=== PATIENT | female | born 1985 | race Caucasian/White ===

== ENCOUNTER 2023-10-02 13:16 | Inpatient (IN) | payer BC, SELFPAY ==
[2023-10-02] VITALS (8 sets, daily range): BP systolic 71–139; BP diastolic 45–89; PULSE 97–127; RESP 19–20; TEMP 36.6–37.7; O2SAT 87–98; BMI 36.1; BMI 38.8
--- NOTE | ~2023-10-02 | XR_ITS ---
EXAMINATION: XR CHEST CLINICAL INFORMATION: Cough. COMPARISON: None available. TECHNIQUE: 2 views of the chest were obtained. FINDINGS: The trachea is in normal anatomic position. The heart is normal in size. There is an opacity at the right lung base concerning for pneumonia. A more subtle, left lower lobe opacity is not excluded. There is no pleural effusion. No pneumothorax. No acute osseous abnormality. XR/XR chest 2V IMPRESSION: Right lower lobe airspace disease concerning for pneumonia. Left lower lobe disease cannot be completely excluded.
--- NOTE | ~2023-10-02 | CT_ITS ---
EXAMINATION: CT CHEST, ABDOMEN AND PELVIS WITH CONTRAST CLINICAL INFORMATION: Severe epigastric pain. Hypotension. Cough. COMPARISON: None available. TECHNIQUE: Multidetector volumetric imaging was performed of the chest, abdomen and pelvis following administration of 85 mL Omnipaque 350 intravenous contrast. Oral contrast was administered. Sagittal and coronal reformatted images were obtained on the technologist's workstation. This CT examination was performed using dose optimization techniques as appropriate, variously including the following: *Automated exposure control *Adjustment of mA and/or kV according to patient size (this includes techniques or standardized protocols for targeted exams where dose is matched to indication/reason for exam; i.e. extremities or head) *Use of iterative reconstruction technique DLP: 774 mGy-cm FINDINGS: CHEST: LUNGS: Extensive airspace disease and masslike consolidation within the medial right lower lobe. There is patchy airspace disease in the left lower lobe. No suspicious pulmonary nodule. Central airways are patent. PLEURA: Trace right pleural effusion. MEDIASTINUM: Imaged thyroid gland is unremarkable. No bulky axillary, mediastinal or hilar lymphadenopathy. Great vessels are of normal caliber. Heart size is normal. No pericardial effusion. CORONARY ARTERY CALCIFICATION: No coronary artery calcification appreciated. CHEST WALL: No acute abnormality. ABDOMEN AND PELVIS: LIVER AND BILIARY TREE: Unremarkable. GALLBLADDER: Unremarkable. PANCREAS: Unremarkable. SPLEEN: Unremarkable. ADRENAL GLANDS: Unremarkable. KIDNEYS AND URETERS: Unremarkable. GASTROINTESTINAL TRACT: Small and large bowel loops are of normal caliber. No small bowel obstruction. Appendix is within normal limits. VASCULAR: Normal caliber abdominal aorta. LYMPH NODES: No bulky lymphadenopathy. FREE FLUID: Trace free fluid. BLADDER: Unremarkable. PELVIC VISCERA: Small anterior fibroid. OSSEOUS STRUCTURES: No destructive bone lesions. CT/CT abdomen pelvis w IV con IMPRESSION: Extensive airspace disease and masslike consolidation in the medial right lower lobe with patchy airspace disease in the left lower lobe. Trace right pleural effusion. This likely represents pneumonia. Follow-up until resolution is advised.
--- NOTE | 2023-10-02 13:38 | ED.SOB ---
HPI - SOB/Dyspnea General Chief Complaint: Upper Respiratory Symptoms Stated Complaint: Diff breathing/Fever/Cough Time Seen by Provider: 10/02/23 13:52 Source: patient and family Mode of arrival: ambulatory History of Present Illness HPI Narrative: 37-year-old female without significant past medical history who presents with severe worsening right upper quadrant pain that began this morning as worsened throughout the day, was involved in a car ride from [place] returning from a wedding, has no prescribed medications, has been taking Motrin and aspirin recently and has a history of GERD, no history of stomach ulcers denies any hematemesis/melena or hematochezia has been nauseous but denies any vomiting and reports alcohol consumption on Monday, 4-5 beers while at wedding [employer] and pain increases with deep inspiration. Related Data Allergies Allergy/AdvReac Type Severity Reaction Status Date / Time No Known Allergies Allergy Verified 10/02/23 13:41 Review of Systems Review of Systems: Pertinent positives and negatives as stated in HPI PMFSH Past Medical History Source: nursing notes reviewed Social History Social History Alcohol intake: current Smoked in Last 30 Days: No Use of substances other than those prescribed or required for medical reasons: No Advance Directives: No Advance Directives Information Provided: Yes Physical Exam Vital Signs: Vital Signs: Last Vital Signs Temp 99.8 F 10/02/23 15:19 Pulse 113 H 10/02/23 15:19 Resp 20 10/02/23 15:19 BP 107/59 L 10/02/23 15:19 Pulse Ox 95 10/02/23 15:28 O2 Del Method Nasal Cannula 10/02/23 15:28 O2 Flow Rate 3.5 10/02/23 15:28 BMI result Body Mass Index 36.1 VITAL SIGNS: Reviewed. GENERAL: Well developed, well nourished, in moderate distress. HEAD: Normocephalic/atraumatic EYES: PERRLA, EOMI EARS: Ext canals without abnormality NOSE: Nares patent bilateral OROPHARYNX: no oral lesions noted, posterior pharynx clear NECK: Supple, no adenopathy LUNGS: Normal breath sounds. No adventitious sounds or accessory muscle use. SpO2<98> CARDIOVASCULAR: Regular rate and rhythm without noted murmurs ABDOMEN: Soft, significantly tender to palpation in the right upper quadrant/epigastrium with rebound, not diffusely tender, non-distended with hypoactive bowel sounds. No rigidity. MUSCULOSKELETAL: No tenderness, deformities, or effusions noted on gross inspection. EXTREMITIES: No cyanosis, clubbing or edema. SKIN: Inspection of the skin reveals no rashes, +pallor NEUROLOGIC: Alert and oriented x 4. Strength and sensation to light touch were grossly intact x 4. Course Course Course Narrative: This is a Rapid Medical Examination (RME) performed by Garett Pierre PA-C in triage. Full HPI, ROS, assessment and treatment plan per primary provider in the Main ED. 37 yo female with no significant medical history, nonsmoker who presents to the ER for evaluation of feeling unwell for the last week, URI symptoms with cough, fever, difficulty breathing and chest pain. She reports 8/10 chest wall pain with deep inspiration. and daughter are also sick with similar symptoms. Pale and looks unwell in triage. Lungs CTAB, pain w/ inspiration. HR 110-120s. hypotensive in triage, SBP 70-90s, nauseated and feels like she is going to pass out Plan: to be brought to treatment room now. EKG, CXR, labs, viral swabs Medications Administered Discontinued Medications Generic Name Dose Route Start Last Admin Trade Name Freq PRN Reason Stop Dose Admin Sodium Chloride 1,000 mls @ 999 mls/hr 10/02/23 14:00 10/02/23 15:15 Ns IVCONT 10/02/23 15:00 Infused .Q1H1M DANIEL Infusion Piperacillin Sod/Tazobactam 50 mls @ 100 mls/hr 10/02/23 14:32 10/02/23 15:17 Sod 3.375 gm/ Sodium Chloride IV 10/02/23 15:01 100 mls/hr ONCE ONE Administration Sodium Chloride 2,517.45 mls @ 2,517.45 mls/hr 10/02/23 14:32 10/02/23 15:15 Ns 30 ml/kg infuse over 1 hr (2517.45 ml) 10/02/23 15:31 2,517.45 mls/hr IV Administration .Q1H STA Magnesium Sulfate 2 gm in 50 mls @ 150 mls/hr 10/02/23 14:33 10/02/23 15:37 Magnesium Sulfate/H2o IV 10/02/23 14:52 Infused ONCE ONE Infusion Iohexol 100 ml 10/02/23 14:20 10/02/23 14:20 Iohexol 350 Mg/Ml 100 Ml Infus..Btl IV 10/02/23 14:21 85 ml ONCE ONE Administration Medical Decision Making Medical Decision Making [facility] Narrative: 1400: 37-year-old female with history and clinical presentation, DDX: Given tachycardia and hypotension concern for bowel perforation possibly secondary to gastric ulcer, possible cholangitis but felt to be less likely, possible pancreatitis, pneumonia, though additionally unlikely, given the location of the pain low clinical suspicion for ruptured ectopic or ovarian cyst. Due to acute onset low clinical suspicion for PE. INTERVENTION: ED sepsis fluids, antibiotics 1533: Informed by nursing that patient is hypoxic down to 88 89%, placed on 3 L nasal cannula with good response. Antibiotics and sepsis fluids are infusing. I reviewed all investigations and hematologic indices significant for leukocytosis with bandemia and no anemia or thrombocytopenia. Chemistry indices negative for PASHA or electrolyte derangements other than low Mag which was repleted with 2 g of magnesium sulfate. Isolated elevation of bilirubin likely secondary to patient's sepsis. Viral testing negative for influenza/RSV/COVID-19. Chest x-ray demonstrates right lower lobe pneumonia and possible left lower lobe. CT scan demonstrates masslike consolidation in the medial right lower lobe with patchy airspace disease in the left lower lobe. CT scan of abdomen negative. Patient responded well to IV fluid resuscitation. 1553: I discussed this case with inpatient hospitalist who accepts admission. Differential Diagnosis Differential Diagnoses: The differential diagnosis associated with the presentation includes Please see the discussion above Admission/Observation Consideration of admission/observation: Escalation of care including admission/observation considered Please see the discussion above Consult Healthcare Provider Management of the patient was discussed with: Hospitalist Please see the discussion above Lab Data [facility] Lab Attestation statement: I reviewed the patient's lab results. Please see the discussion above 10/02/23 14:08 10/02/23 14:08 Labs: Lab Results 10/02/23 10/02/23 Range/Units 14:08 15:05 WBC 19.1 H (4.8-10.8) X10*3/uL RBC 3.92 L (4.20-5.50) X10*6/uL Hgb 12.3 (12.0-16.0) g/dl Hct 35.0 L (37.0-47.0) % MCV 89.3 (80.0-98.0) fL MCH 31.4 (27.0-33.0) pg MCHC 35.1 H (31.0-35.0) g/dl RDW 12.0 (11.0-16.0) % Plt Count 272 (160-400) X10*3/uL MPV 8.9 L (9.4-12.3) fL Immature Gran % (Auto) Cancelled Neut % (Auto) Cancelled Lymph % (Auto) Cancelled [place]assen % (Auto) Cancelled Eos % (Auto) Cancelled Baso % (Auto) Cancelled Lymph # (Auto) Cancelled [place]assen # (Auto) Cancelled Eos # (Auto) Cancelled Baso # (Auto) Cancelled Abs Immat Gran (auto) Cancelled Absolute Neuts (auto) Cancelled Absolute Nucleated RBC 0.000 (0.0-0.012) X10*3/uL Nucleated RBC % (auto) 0.0 (0.0-0.2) /100WBC Neutrophils % (Manual) 53 (45-73) % Band Neutrophils % 39 H (3-5) % Lymphocytes % (Manual) 2 L (20-40) % Monocytes % (Manual) 6 (2-11) % Abs Neuts (Manual) 17.6 H (2.0-8.3) X10*3/uL Lymphocytes # (Manual) 0.4 L (1.2-4.9) X10*3/uL Monocytes # (Manual) 1.1 (0.1-1.2) X10*3/uL Toxic Vacuolation PRESENT Platelet Estimate NORMAL (NORMAL) Plt Morphology Comment NORMAL RBC Morphology NORMAL Sodium 136 (135-145) mmol/L Potassium 4.1 (3.3-5.1) mmol/L Chloride 105 (96-108) mmol/L Carbon Dioxide 19 L (22-29) mmol/L Anion Gap 16 (12-20) BUN 11 (9-16) mg/dL Creatinine 0.86 (0.5-1.4) mg/dL Estim Creat Clear Calc 84.3 Estimated GFR > 60 Random Glucose 110 (60-115) mg/dL Lactic Acid 1.8 (0.5-2.0) mmol/L Calcium 9.4 (8.4-10.2) mg/dL Magnesium 1.2 L* (1.6-2.6) mg/dL Total Bilirubin 1.2 H (0.0-1.0) mg/dL Direct Bilirubin 0.4 (0.0-0.5) mg/dL AST 13 (5-31) U/L ALT 10 (0-31) U/L Alkaline Phosphatase 64 (39-117) U/L Troponin I High Sens < 2.7 (<3.5-17.0) ng/L Total Protein 7.3 (6.5-8.0) g/dL Albumin 4.2 (3.5-5.0) g/dL Lipase 5 L (8-78) U/L Influenza Type A (PCR) NEGATIVE (Negative) Influenza Type B (PCR) NEGATIVE (Negative) RSV RNA Qual (PCR) NEGATIVE (Negative) SARS-CoV-2 RNA (RT-PCR) NEGATIVE (Negative) Blood Type O Positive Antibody Screen NEGATIVE Independent Interpretation I performed an independent interpretation of an: EKG Interpretation: Sinus tachycardia, HR-109, no STEMI, ST depressions noted throughout the lateral leads, VT/QRS/QTC is within normal limits. Radiology Impression Discussion of test interpretation with radiology: I have reviewed the radiologist's reading. Radiologist Impression: Please see the discussion above Critical Care Time Critical Care Time Critical Care Time: Yes Total Critical Care Time: 60 Attestation: I personally attest to this time spent taking care of the patient. Discharge Plan Discharge Clinical Impression: Severe sepsis, Pneumonia, Hypoxia, Hypomagnesemia Patient Disposition: Admitted As Inpatient Print Language: French
--- NOTE | 2023-10-02 13:41 | ECG_ITS ---
Test Reason : SOB Blood Pressure : / mmHG Vent. Rate : 109 BPM Atrial Rate : 109 BPM P-R Int : 142 ms QRS Dur : 092 ms QT Int : 344 ms P-R-T Axes : 056 026 113 degrees QTc Int : 463 ms Sinus tachycardia Low voltage QRS Cannot rule out Anterior infarct , age undetermined Abnormal ECG No previous ECGs available Referred By: Ifrah Pierre Electronically Signed By:LAMONT MORALES MD
[2023-10-02 14:13] LABS: Hemoglobin 12.3 g/dl (12.0-16.0); Mean Corpuscular HGB Conc 35.1 g/dl (31.0-35.0); Mean Corpuscular Hemoglobin 31.4 pg (27.0-33.0); Mean Corpuscular Volume 89.3 fL (80.0-98.0); Mean Platelet Volume 8.9 fL (9.4-12.3); Platelet Count 272 X10*3/uL (160-400); Red Blood Count 3.92 X10*6/uL (4.20-5.50); White Blood Count 19.1 X10*3/uL (4.8-10.8)
[2023-10-02] MEDS: 0.9 % Sodium Chloride 1,000 ML 999 ML IVCONT (14:13)
[2023-10-02] MEDS: iohexoL 350 MG/ML 100 ML INFUS..BTL IV (14:20)
[2023-10-02 14:23] LABS: Lactic Acid 1.8 mmol/L (0.5-2.0)
[2023-10-02 14:29] LABS: Alanine Aminotransferase 10 U/L (0-31); Albumin Level 4.2 g/dL (3.5-5.0); Alkaline Phosphatase 64 U/L (39-117); Anion Gap 16 (12-20); Aspartate Amino Transferase 13 U/L (5-31); Bilirubin Direct 0.4 mg/dL (0.0-0.5); Bilirubin Total 1.2 mg/dL (0.0-1.0); Blood Urea Nitrogen 11 mg/dL (9-16); Calcium 9.4 mg/dL (8.4-10.2); Carbon Dioxide 19 mmol/L (22-29); Chloride 105 mmol/L (96-108); Creatinine Clr Calc Pharmacy 84.3; Estimated Glomerular Filt Rate > 60; Glucose Random 110 mg/dL (60-115); Potassium 4.1 mmol/L (3.3-5.1); Sodium 136 mmol/L (135-145); Total Protein 7.3 g/dL (6.5-8.0)
[2023-10-02 14:33] LABS: Magnesium 1.2 mg/dL (1.6-2.6)
[2023-10-02 14:41] LABS: Troponin-I High Sensitivity < 2.7 ng/L (<3.5-17.0)
[2023-10-02 14:50] LABS: Neutrophils Percent Manual 53 % (45-73)
[2023-10-02 14:53] LABS: Band Neutrophils Percent 39 % (3-5); Lymphocytes Absolute Manual 0.4 X10*3/uL (1.2-4.9); Lymphocytes Percent Manual 2 % (20-40); Monocytes Absolute Manual 1.1 X10*3/uL (0.1-1.2); Monocytes Percent Manual 6 % (2-11); Neutrophils Absolute Manual 17.6 X10*3/uL (2.0-8.3); RBC Morphology NORMAL
[2023-10-02 14:54] LABS: Platelet Estimate NORMAL (NORMAL); Platelet Morphology Comment NORMAL; Toxic Vacuolation PRESENT
[2023-10-02 15:05] LABS: Lipase 5 U/L (8-78)
[2023-10-02] MEDS: 0.9 % Sodium Chloride 2,517.45 ML 2517.45 ML IV (15:15)
[2023-10-02] MEDS: Magnesium Sulfate/H2O 2 GM/50 ML PIGGYBACK IV (15:15)
[2023-10-02] MEDS: Piperacillin Sodium/Tazobactam 3.375 GM in 0.9 % Sodium Chloride 50 ML IV (15:17)
[2023-10-02 15:19] LABS: Influenza A PCR NEGATIVE (Negative); Influenza B PCR NEGATIVE (Negative); Resp Syncy Virus RNA Qual PCR NEGATIVE (Negative); SARS COV2 PCR INHOUSE NEGATIVE (Negative)
--- NOTE | 2023-10-02 16:58 | P.HPHOSP_ITS ---
History of Present Illness Date of Service: 10/02/23 Attending physician on admission: iLnus Murdock Chief Complaint: cough, sob 37-year-old female without any significant past medical history presented to the ED earlier today for evaluation of shortness of breath, worsening productive cough and fevers noted around 03:00 this morning. She states for about 1 week, she has been sick with upper respiratory symptoms including cough, congestion, sinus pain, headache. States her and daughter were sick with similar symptoms. However this morning, acutely worsened with fevers of 101.3, worsening productive cough and shortness of breath. She also has significant pleuritic chest pain. Was also reporting epigastric pain but no nausea or vomiting. She states she lives in [place] and drove 11.5 hours to a wedding in [place] and is now in the city visiting relatives. Denies any known history of blood clots. She reports occasional alcohol consumption. No cigarette smoking or drug use including marijuana. On arrival, patient was hypotensive to 71/40 and tachycardic to 127. She has not had fevers in the ED but reports feeling sweats and chills. She was also noted to be hypoxic to 87% on room air and briefly placed on 3 L supplemental O2. On admission, oximetry noted to be between 94-96% on room air and was removed from supplemental O2. She has a leukocytosis of 19.1 with 39% bandemia. Renal function normal, electrolyte levels normal except for magnesium of 1.2. Lactic acid 1.8. Total bilirubin 1.2. Troponin undetectable. Negative for COVID-19, RSV, flu. Chest CT shows extensive airspace disease and masslike consolidation in the medial right lower lobe with patchy airspace disease in left lower lobe and trace right pleural effusion likely representing pneumonia. CT abd/pelvis negative for acute intraabdominal abnormality. In the ED, has received 3.5 L IV NS, 2 g magnesium, 3.375 g Zosyn. PMFSH Social History Alcohol intake: current Smoked in Last 30 Days: No Use of substances other than those prescribed or required for medical reasons: No Advance Directives: No Advance Directives Information Provided: Yes Meds Allergies Allergy/AdvReac Type Severity Reaction Status Date / Time No Known Allergies Allergy Verified 10/02/23 13:41 Active Medications: Current Medications Acetaminophen (Acetaminophen 325 Mg Tablet) 650 mg PO Q6H PRN PRN Reason: Fever Acetaminophen (Acetaminophen 325 Mg Tablet) 650 mg PO Q6H PRN PRN Reason: Pain, Mild (Pain Scale 1-3) Acetaminophen (Acetaminophen 325 Mg Tablet) 650 mg PO Q6H PRN PRN Reason: Headache Calcium Carbonate (Calcium Carbonate 750 Mg Tab.Chew) 750 mg PO Q6H PRN PRN Reason: Heartburn Ampicillin Sodium/Sulbactam (Sodium 3 gm/ Sodium Chloride) 100 mls @ 200 mls/hr IV Q6H [facility] Magnesium Hydroxide (Milk Of Magnesia 30 Ml Oral.Susp) 30 ml PO DAILY PRN PRN Reason: Constipation Melatonin (Melatonin 3 Mg Tablet) 6 mg PO BEDTIME PRN PRN Reason: Insomnia Pharmacy Consult (Consult Rx Vancomycin Dosing) 1 each MISCELLANE DAILY PRN PRN Reason: Consult order Polyethylene Glycol (Polyethylene Glycol 3350 17 Gm Powd.Pack) 17 gm PO DAILY PRN PRN Reason: Constipation Sodium Chloride (0.9 % Sodium Chloride Flush 3 Ml Syringe) 3 ml IVFLUSH QSHIFT [facility] Physical Exam 2 Vital Signs and Narrative: Vital Signs: Last Vital Signs Temp 99.8 F 10/02/23 15:19 Pulse 113 H 10/02/23 15:19 Resp 20 10/02/23 15:19 BP 107/59 L 10/02/23 15:19 Pulse Ox 95 10/02/23 15:28 O2 Del Method Nasal Cannula 10/02/23 15:28 O2 Flow Rate 3.5 10/02/23 15:28 BMI result Body Mass Index 36.1 Constitutional - Awake and Alert, No apparent distress Eyes - PERRLA, EOMI Cardiovascular - S1S2, RRR, No edema Respiratory - Normal lung expansion, Normal respiratory effort, No respiratory distress, bilateral rhonchi Gastrointestinal - NT / ND; +BS; No rebound or guarding Extremities - no calf tenderness bilaterally, no swelling Skin - Warm/Dry Neurological - Alert & oriented x3 Psychological - Appropriate affect Results Labs 10/02/23 14:08 10/02/23 14:08 Labs: Laboratory Results - last 24 hr 10/02/23 10/02/23 14:08 15:05 MCV 89.3 MCH 31.4 MCHC 35.1 H RDW 12.0 Plt Count 272 MPV 8.9 L Immature Gran % (Auto) Cancelled Neut % (Auto) Cancelled Lymph % (Auto) Cancelled Bradley % (Auto) Cancelled Eos % (Auto) Cancelled Baso % (Auto) Cancelled Lymph # (Auto) Cancelled Bradley # (Auto) Cancelled Eos # (Auto) Cancelled Baso # (Auto) Cancelled Abs Immat Gran (auto) Cancelled Absolute Neuts (auto) Cancelled Absolute Nucleated RBC 0.000 Nucleated RBC % (auto) 0.0 Neutrophils % (Manual) 53 Band Neutrophils % 39 H Lymphocytes % (Manual) 2 L Monocytes % (Manual) 6 Abs Neuts (Manual) 17.6 H Lymphocytes # (Manual) 0.4 L Monocytes # (Manual) 1.1 Toxic Vacuolation PRESENT Platelet Estimate NORMAL Plt Morphology Comment NORMAL RBC Morphology NORMAL Anion Gap 16 Estim Creat Clear Calc 84.3 Estimated GFR > 60 Random Glucose 110 Lactic Acid 1.8 Calcium 9.4 Magnesium 1.2 L* Total Bilirubin 1.2 H Direct Bilirubin 0.4 AST 13 ALT 10 Alkaline Phosphatase 64 Troponin I High Sens < 2.7 Total Protein 7.3 Albumin 4.2 Lipase 5 L Influenza Type A (PCR) NEGATIVE Influenza Type B (PCR) NEGATIVE RSV RNA Qual (PCR) NEGATIVE SARS-CoV-2 RNA (RT-PCR) NEGATIVE Blood Type O Positive Antibody Screen NEGATIVE Imaging Radiologist's Impressions: Impressions Abdomen/Pelvis CT 10/02/23 14:32 IMPRESSION: Extensive airspace disease and masslike consolidation in the medial right lower lobe with patchy airspace disease in the left lower lobe. Trace right pleural effusion. This likely represents pneumonia. Follow-up until resolution is advised. Chest CT 10/02/23 14:32 IMPRESSION: Extensive airspace disease and masslike consolidation in the medial right lower lobe with patchy airspace disease in the left lower lobe. Trace right pleural effusion. This likely represents pneumonia. Follow-up until resolution is advised. Chest X-Ray 10/02/23 14:45 IMPRESSION: Right lower lobe airspace disease concerning for pneumonia. Left lower lobe disease cannot be completely excluded. Assessment and Plan (1) Severe sepsis: Status: Acute (2) Pneumonia: Status: Acute (3) Hypomagnesemia: Status: Acute Plan 37-year-old female without any significant past medical history admitted for extensive bilateral pneumonia with severe sepsis. #Acute bilateral pneumonia with severe sepsis -leukocytosis 19, tachycardic, hypotensive to 71/45 on arrival. Hypotension resolved with IV fluids. No other end-organ damage. No septic shock -CT chest with contrast shows extensive airspace disease and masslike consolidation in the medial right lower lobe with patchy airspace disease in the left lower lobe and trace right pleural effusion likely representing pneumonia -weaned from supplemental O2 prior to admission -IV vancomycin and Unasyn (initiated 10/01) -check MRSA nasal swab. Check sputum culture, strep pneumo antigen, Legionella antigen. -check RPP -symptomatic management -will also check ddimer given pt drove 11.5 hours and is tachycardic, hypotensive, with hypoxita initially -we will also check HIV given pneumonia in young otherwise healthy female -follow CBC, cultures #Hypomagnesemia -repleted, follow lytes dvt prophylaxis- scps, early ambulation full code Patient requires inpatient stay at least 2 midnights for management of acute extensive bilateral pneumonia with severe sepsis requiring IV antibiotics, close monitoring of respiratory status, and monitoring of cultures Quality Stroke Does the patient have a stroke diagnosis?: No VTE Prior VTE?: No VTE Risk Level:: Medical - moderate - high VTE Device Contraindication: Treatment Not Indicated VTE Drug Contraindication: N/A - Med Ordered
[2023-10-02] MEDS: Acetaminophen 325 MG TABLET 975 MG PO (17:04)
[2023-10-02 17:21] LABS: Appearance Urine Clear; Color Urine Yellow; Glucose Urine UA Negative (Negative); Leukocyte Esterase Urine Small (1+) (Negative); Nitrite Urine Negative (Negative); Specific Gravity - Urine 1.025 (1.005-1.025); UMIC TRIGGER UACC YES; Urine Blood Negative (Negative); Urine Ketones Negative (Negative); Urine Protein Negative (Neg-Trace)
[2023-10-02 17:24] LABS: UPreg QC Valid YES; Urine Pregnancy NEGATIVE (NEGATIVE)
[2023-10-02] MEDS: vancomycin/NS 2,000 MG/500 ML PLAST..BAG 250 MG IV (17:33)
[2023-10-02] MEDS: guaiFEN/Codeine SF 200/20/10ML 10 ML LIQUID 5 ML PO ×2 (17:33→22:27)
[2023-10-02 17:38] LABS: Bacteria Urine None Seen (None Seen); Hyaline Casts Urine 0-2 /LPF (0-2); RBC Urine 0-2 /HPF (0-2); Squamous Epithelial Cell Urine 0-2 /HPF (0-2); UACC Culture Trigger YES
--- NOTE | 2023-10-02 17:50 | PHA.PROG ---
Admission Date/Time: October 02, 2023 16:56 Indication: Respiratory Weight in k.915 kg Adjusted body weight in Kg: [place] body weight in Kg: Obesity Dosing Indication % IBW: Serum Creatinine - Last 168 Hours 10/02/23 14:08 Creatinine 0.86 Estimated CrCl and GFR - Last 168 Hours 10/02/23 14:08 Estim Creat Clear Calc 84.3 Estimated GFR > 60 Vancomycin Loading Dose: 2000mg x 1 Current Vancomycin Dosing Regimen: 500mg Q8H Vancomycin Monitoring using AUC goal of 400 - 600 range with trough as surrogate marker: 451 mg/L Date and Time for next Vancomycin Level to be drawn: 10/02 @1600 Pharmacist Comments on Vancomycin Plan: Predicted trough of 14.7 mg/L; will continue to monitor and adjust as necessary Vancomycin dosing will take advantage of [employer] as a clinical decision support tool that uses Bayesian modeling to calculate individual patient's pharmacokinetic parameters and forecast the patient's drug concentration time course with the target goal AUC 24 range of 400 - 600 mg/L/hr.
[2023-10-02 18:24] LABS: D Dimer High Sensitivity < 150 NG/ML
--- NOTE | 2023-10-02 18:24 | PHA.MEDREC ---
Pharmacy Consult ? Medication Reconciliation Pharmacy has completed the medication reconciliation. Spoke to patient, she confirms she's not on any medication.
[2023-10-02] MEDS: 0.9 % Sodium Chloride Flush 3 ML SYRINGE IVFLUSH (22:27)
[2023-10-02] MEDS: Ampicillin Sodium/Sulbactam Na 3 GM in 0.9 % Sodium Chloride 100 ML IV (22:27)
[2023-10-03 03:49] VITALS: BP 94/54; PULSE 93; RESP 20; TEMP 36.8; O2SAT 92
--- NOTE | 2023-10-03 04:18 | PM.EVENT ---
Event Note Date of Service: 10/03/23 Event Note: Blood culture collected 10/02/23 one bottle/one set gram positive cocci in chains seen on gram stain. Time Spent With Patient Time: Total time managing care of this patient today ____ minutes.
[2023-10-03] MEDS: Ampicillin Sodium/Sulbactam Na 3 GM in 0.9 % Sodium Chloride 100 ML IV ×4 (04:30→21:25)
[2023-10-03] MEDS: vancomycin HCL 500 MG in 0.9 % Sodium Chloride 100 ML 110 MG IV ×2 (04:31→11:17)
[2023-10-03] MEDS: guaiFEN/Codeine SF 200/20/10ML 10 ML LIQUID 5 ML PO ×3 (04:31→21:25)
[2023-10-03] MEDS: Acetaminophen 325 MG TABLET 650 MG PO ×3 (05:00→21:22)
[2023-10-03 06:49] LABS: Hematocrit 30.1 % (37.0-47.0); Hemoglobin 10.5 g/dl (12.0-16.0); Mean Corpuscular HGB Conc 34.9 g/dl (31.0-35.0); Mean Corpuscular Hemoglobin 31.9 pg (27.0-33.0); Mean Corpuscular Volume 91.5 fL (80.0-98.0); Mean Platelet Volume 9.2 fL (9.4-12.3); Platelet Count 247 X10*3/uL (160-400); Red Blood Count 3.29 X10*6/uL (4.20-5.50); Red Cell Distribution Width 12.4 % (11.0-16.0); White Blood Count 20.2 X10*3/uL (4.8-10.8)
--- NOTE | 2023-10-03 07:00 | CA_ITS ---
Transthoracic Echocardiogram Patient (Last, First, Middle): Machelle Santamaria A Gender: Female Date of : 1985 Age: 37 Procedure Date: 10/03/2023 Procedure Type: Transthoracic Echocardiogram Location: [facility] [place] Height: 152.4 cm Weight: 89.81 kg BSA: 1.86 m2 Heart Rate: bpm BP: 99 / 59 mmHg [employer] Support: TRISTA Reese MD: Linus Murdock MD Anesthesia Assistant: Rhett Summers MD Symptoms: bactermia Study Quality: Adequate w contrast ECG Rhythm: Sinus Conclusions: - 1. No obvious vegetation seen on this study 2. Normal LV ejection fraction at 55-60% 3. Normal cardiac valvular Doppler 4. Normal RV systolic pressure 5. No gross pericardial effusion Findings Procedure Information Contrast agent, definity, is being given per protocol without apparent complications. Left Ventricle Normal left ventricular size, thickness, and systolic function. The visually estimated ejection fraction is between 55-60%. Diastolic function is normal for age. Right Ventricle Normal right ventricular cavity size and systolic function. Atria The left atrium is normal in size. Interatrial shunt cannot be excluded. The right atrium was not well visualized. Aortic Valve The aortic valve structure and function is likely normal. There is no aortic valve stenosis. There is no aortic valve regurgitation. Mitral Valve Normal mitral valve structure and function. There is trace mitral valve regurgitation. There is no mitral valve stenosis. Pulmonic Valve The pulmonic valve was not well visualized. Tricuspid Valve Likely normal tricuspid valve structure and function. There is trace tricuspid valve regurgitation. The right ventricular systolic pressure is normal. The right ventricular systolic pressure is 22 mmHg. Normal right atrial pressure. There is no evidence of pulmonary hypertension. Great Vessels All visible segments of the aorta are normal in size. The pulmonary artery was not well visualized. Venous The inferior vena cava is normal in size and collapses greater than 50% with inspiration. Pericardium/Pleural There is no evidence of pericardial effusion. Prior Study Comparison No prior study available for comparison. Recommendations, Care & Conclusions Consider a AKILAH if clinically appropriate. Measurements 2D Linear Measurements IVSd: 0.88 0.6-0.9/0.6-1.0 cm LVIDd: 4.69 3.9-5.3/4.2-5.9 cm LVIDd Index: 2.52 2.4-3.2/2.2-3.1 cm/m2 LVIDs: 2.64 2.0-3.6 cm LVPWd: 0.91 0.7-1.1 cm LA Diam: 3.10 2.7-3.8/3.0-4.0 cm LAIDs Index: 1.67 1.5-2.3 cm/m2 LV Mass: 175.96 67-162/88-224 g LV Mass Index: 94.60 43-95/49-115 g/m2 LVOT Diam: 2.00 3.0+(-)1.3 cm 2D Systolic Function EF 4C: 58.90 >55% EF 2C: 56.20 >55% EF BiP: 57.70 >55% Mitral Valve MV Pk E: 1.05 MV PK A: 0.72 MV Decel Time: 200.00 E/A: 1.50 E'Lateral: 13.30 E'Medial: 12.10 E/E' Med: 8.70 E/E' Lat: 7.90 PHT: 59.00 MVA PHT: 3.73 Decel [place]: 5.27 Aortic Valve AoV Pk Tani: 1.77 AoV Mn Tani: 1.20 AoV VTI: 0.33 AoV Pk Grad: 13.00 Aov Mn Grad: 7.00 MARIA LUZ Cont.VTI: 2.22 LVOT LVOT Pk Tani: 1.40 LVOT Mn Tani: 0.96 LVOT VTI: 0.23 LVOT Pk Grad: 8.00 LVOT Mn Grad: 4.00 LVOT Diam: 2.00 LVOT Area: 3.14 Diastolic Function MV Pk E: 1.05 MV Pk A: 0.72 E/A: 1.50 E'Medial: 12.10 E/E' Med: 8.70 E' Laterial: 13.30 E/E' Lat: 7.90 Right Ventricle TAPSE (mm): 25.80 TVS' Tani: 16.60 Tricuspid Valve TR Pk Tani: 2.20 TR Pk Grad: 19.00 RA Press: 3.00 RVSP: 22.00 Great Vessels Aorta Sinus of Valsalva: 3.50 2.0-3.5 cm Ao Asc: 3.10 2.1-3.4 cm Pulmonary Valve PV Pk Tani: 1.01 Peak PV Grad: 4.00 Updated in Other Vendor System with Status of Final Rhett Summers MD electronically signed on 10/03/2023 12:08:22 PM with status of Final
[2023-10-03 07:06] LABS: Anion Gap 12 (12-20); Blood Urea Nitrogen 7 mg/dL (9-16); Calcium 7.9 mg/dL (8.4-10.2); Carbon Dioxide 18 mmol/L (22-29); Chloride 113 mmol/L (96-108); Creatinine Clr Calc Pharmacy 121.8; Estimated Glomerular Filt Rate > 60; Glucose Random 99 mg/dL (60-115); Magnesium 1.9 mg/dL (1.6-2.6); Potassium 3.7 mmol/L (3.3-5.1); Sodium 139 mmol/L (135-145)
[2023-10-03 07:21] VITALS: BP 99/59; PULSE 93; RESP 20; TEMP 36.9; O2SAT 92
[2023-10-03 07:33] LABS: Band Neutrophils Percent 22 % (3-5); Lymphocytes Absolute Manual 0.6 X10*3/uL (1.2-4.9); Lymphocytes Percent Manual 3 % (20-40); Monocytes Absolute Manual 1.6 X10*3/uL (0.1-1.2); Monocytes Percent Manual 8 % (2-11); Neutrophils Percent Manual 67 % (45-73); RBC Morphology NORMAL
[2023-10-03 07:34] LABS: Platelet Estimate NORMAL (NORMAL); Platelet Morphology Comment NORMAL; Toxic Vacuolation PRESENT
[2023-10-03 08:18] LABS: HIV AB/AG Nonreactive (Nonreactive); HIV Num 1 0.05 S/CO (0.00-0.99)
--- NOTE | 2023-10-03 08:30 | MHC.CM.PN ---
CM met with Patient at bedside. Patient lives in a house in [place] with her , Mother and 16 month old Daughter and the family is staying with Patient's Aunt in this area (in [place] for a family wedding). Home/self care is the goal and CM has initiated and will follow for dc planning. PCP is Dr. Jefferson Lopez in [place].
[2023-10-03] MEDS: 0.9 % Sodium Chloride Flush 3 ML SYRINGE IVFLUSH ×3 (08:41→21:28)
[2023-10-03 09:25] LABS: Adenovirus PCR Not Detected (Not Detect.); Bordetella parapertussis PCR Not Detected (Not Detect.); Bordetella pertussis PCR Not Detected (Not Detect.); Chlamydia pneumoniae PCR Not Detected (Not Detect.); Coronavirus 229E PCR Not Detected (Not Detect.); Coronavirus HKU1 PCR Not Detected (Not Detect.); Coronavirus NL63 PCR Not Detected (Not Detect.); Coronavirus OC43 PCR Not Detected (Not Detect.); Human metapneumovirus PCR Detected (Not Detect.); Influenza A PCR Not Detected (Not Detect.); Influenza B PCR Not Detected (Not Detect.); Mycoplasma pneumoniae PCR Not Detected (Not Detect.); Parainfluenza 1 PCR Not Detected (Not Detect.); Parainfluenza 2 PCR Not Detected (Not Detect.); Parainfluenza 3 PCR Detected (Not Detect.); Parainfluenza 4 PCR Not Detected (Not Detect.); RSV PCR Not Detected (Not Detect.); Rhino/Enterovirus PCR Not Detected (Not Detect.)
[2023-10-03 09:52] LABS: SARS-CoV-2 PCR Not Detected (Not Detect.)
[2023-10-03 10:11] LABS: MRSA Nasal PCR NEGATIVE (Negative); SA Nasal PCR NEGATIVE (Negative)
[2023-10-03 11:06] VITALS: BP 103/61; PULSE 95; RESP 20; TEMP 36.9; O2SAT 95
--- NOTE | 2023-10-03 11:58 | HO.PM.IMPN ---
Subjective Subjective Date of Service: 10/03/23 Interval History: feeling a bit better Physical Exam Vital Signs: Vital Signs: Last Vital Signs Temp 98.4 F 10/03/23 11:06 Pulse 95 10/03/23 11:06 Resp 20 10/03/23 11:06 BP 103/61 10/03/23 11:06 Pulse Ox 95 10/03/23 11:06 O2 Del Method Room Air 10/03/23 11:06 O2 Flow Rate 3.5 10/02/23 15:28 BMI result Body Mass Index 38.8 General: AO X 3, no acute distress Resp: Right base decreased, no accessory muscles used CVS: S1,S2,RRR GI: soft, non tender, non distended Neuro: motor grossly intact, alert Psych: appropriate affect, appropriate insight Objective Data Active Medications Acetaminophen (Acetaminophen 325 Mg Tablet) 650 mg PO Q6H PRN PRN Reason: Fever Acetaminophen (Acetaminophen 325 Mg Tablet) 650 mg PO Q6H PRN PRN Reason: Pain, Mild (Pain Scale 1-3) Acetaminophen (Acetaminophen 325 Mg Tablet) 650 mg PO Q6H PRN PRN Reason: Headache Last Admin: 10/03/23 05:00 Dose: 650 mg Documented By: MALA Calcium Carbonate (Calcium Carbonate 750 Mg Tab.Chew) 750 mg PO Q6H PRN PRN Reason: Heartburn Guaifenesin/Codeine Phosphate (Guaifen/Codeine Sf 200/20/10ml 10 Ml Liquid) 5 ml PO Q4H [facility] Last Admin: 10/03/23 08:41 Dose: 5 ml Documented By: MELBA Ampicillin Sodium/Sulbactam (Sodium 3 gm/ Sodium Chloride) 100 mls @ 200 mls/hr IV Q6H [facility] Last Infusion: 10/03/23 09:31 Dose: Infused Documented By: MELBA Vancomycin HCl 500 mg/ Sodium (Chloride) 110 mls @ 110 mls/hr IV Q8H [facility] Last Admin: 10/03/23 11:17 Dose: 110 mls/hr Documented By: MELBA Magnesium Hydroxide (Milk Of Magnesia 30 Ml Oral.Susp) 30 ml PO DAILY PRN PRN Reason: Constipation Melatonin (Melatonin 3 Mg Tablet) 6 mg PO BEDTIME PRN PRN Reason: Insomnia Pharmacy Consult (Consult Rx Vancomycin Dosing) 1 each MISCELLANE DAILY PRN PRN Reason: Consult order Polyethylene Glycol (Polyethylene Glycol 3350 17 Gm Powd.Pack) 17 gm PO DAILY PRN PRN Reason: Constipation Sodium Chloride (0.9 % Sodium Chloride Flush 3 Ml Syringe) 3 ml IVFLUSH QSHIFT [facility] Last Admin: 10/03/23 08:41 Dose: 3 ml Documented By: MELBA Labs 10/03/23 06:19 10/03/23 06:19 Labs: Laboratory Results - last 24 hr 10/02/23 10/02/23 10/02/23 14:08 15:05 17:14 MCV 89.3 MCH 31.4 MCHC 35.1 H RDW 12.0 Plt Count 272 MPV 8.9 L Immature Gran % (Auto) Cancelled Neut % (Auto) Cancelled Lymph % (Auto) Cancelled Kerr % (Auto) Cancelled Eos % (Auto) Cancelled Baso % (Auto) Cancelled Lymph # (Auto) Cancelled Kerr # (Auto) Cancelled Eos # (Auto) Cancelled Baso # (Auto) Cancelled Abs Immat Gran (auto) Cancelled Absolute Neuts (auto) Cancelled Absolute Nucleated RBC 0.000 Nucleated RBC % (auto) 0.0 Neutrophils % (Manual) 53 Band Neutrophils % 39 H Lymphocytes % (Manual) 2 L Monocytes % (Manual) 6 Abs Neuts (Manual) 17.6 H Lymphocytes # (Manual) 0.4 L Monocytes # (Manual) 1.1 Toxic Vacuolation PRESENT Platelet Estimate NORMAL Plt Morphology Comment NORMAL RBC Morphology NORMAL D-Dimer High Sensitivty Anion Gap 16 Estim Creat Clear Calc 84.3 Estimated GFR > 60 Random Glucose 110 Lactic Acid 1.8 Calcium 9.4 Magnesium 1.2 L* Total Bilirubin 1.2 H Direct Bilirubin 0.4 AST 13 ALT 10 Alkaline Phosphatase 64 Troponin I High Sens < 2.7 Total Protein 7.3 Albumin 4.2 Lipase 5 L Urine Color Yellow Urine Appearance Clear Urine pH 6.0 Ur Specific Payson 1.025 Urine Protein Negative Urine Glucose (UA) Negative Urine Ketones Negative Urine Blood Negative Urine Nitrite Negative Ur Leukocyte Esterase Small (1+) H Urine RBC 0-2 Urine WBC 11-20 H Ur Squamous Epith Cells 0-2 Urine Bacteria None Seen Hyaline Casts 0-2 Urine Test NEGATIVE Nasal Screen MRSA (PCR) Nasal S. aureus Screen Nasal MRSA/S.aureus Interp Respiratory Panel Dawson Adenovirus (Rapid PCR) B.pert (TEM-PCR) B.parapertussis DNA PCR C. pneumoniae DNA (PCR) Coronavirus OC43 (PCR) Coronavirus HKU1 (PCR) Coronavirus 229E (PCR) Coronavirus NL63 (PCR) Human Metapneumovir PCR Influenza A (RT-PCR) Influenza Type A (PCR) NEGATIVE Influenza B (RT-PCR) Influenza Type B (PCR) NEGATIVE M. pneumoniae (PCR) Parainfluenza 1 (PCR) Parainfluenza 2 (PCR) Parainfluenza 3 (PCR) Parainfluenza 4 (PCR) RSV (PCR) RSV RNA Qual (PCR) NEGATIVE Entero/Rhino (PCR) SARS-CoV-2 RNA (RT-PCR) NEGATIVE Blood Type O Positive Antibody Screen NEGATIVE 10/02/23 10/02/23 10/03/23 17:55 18:02 06:19 MCV 91.5 MCH 31.9 MCHC 34.9 RDW 12.4 Plt Count 247 MPV 9.2 L Immature Gran % (Auto) Cancelled Neut % (Auto) Cancelled Lymph % (Auto) Cancelled Kerr % (Auto) Cancelled Eos % (Auto) Cancelled Baso % (Auto) Cancelled Lymph # (Auto) Cancelled Kerr # (Auto) Cancelled Eos # (Auto) Cancelled Baso # (Auto) Cancelled Abs Immat Gran (auto) Cancelled Absolute Neuts (auto) Cancelled Absolute Nucleated RBC 0.000 Nucleated RBC % (auto) 0.0 Neutrophils % (Manual) 67 Band Neutrophils % 22 H Lymphocytes % (Manual) 3 L Monocytes % (Manual) 8 Abs Neuts (Manual) 18.0 H Lymphocytes # (Manual) 0.6 L Monocytes # (Manual) 1.6 H Toxic Vacuolation PRESENT Platelet Estimate NORMAL Plt Morphology Comment NORMAL RBC Morphology NORMAL D-Dimer High Sensitivty < 150 Anion Gap 12 Estim Creat Clear Calc 121.8 Estimated GFR > 60 Random Glucose 99 Lactic Acid Calcium 7.9 L D Magnesium 1.9 Total Bilirubin Direct Bilirubin AST ALT Alkaline Phosphatase Troponin I High Sens Total Protein Albumin Lipase Urine Color Urine Appearance Urine pH Ur Specific Payson Urine Protein Urine Glucose (UA) Urine Ketones Urine Blood Urine Nitrite Ur Leukocyte Esterase Urine RBC Urine WBC Ur Squamous Epith Cells Urine Bacteria Hyaline Casts Urine Test Nasal Screen MRSA (PCR) NEGATIVE Nasal S. aureus Screen NEGATIVE Nasal MRSA/S.aureus Interp SEE NOTE Respiratory Panel Dawson See Note Adenovirus (Rapid PCR) Not Detected B.pert (TEM-PCR) Not Detected B.parapertussis DNA PCR Not Detected C. pneumoniae DNA (PCR) Not Detected Coronavirus OC43 (PCR) Not Detected Coronavirus HKU1 (PCR) Not Detected Coronavirus 229E (PCR) Not Detected Coronavirus NL63 (PCR) Not Detected Human Metapneumovir PCR Detected A Influenza A (RT-PCR) Not Detected Influenza Type A (PCR) Influenza B (RT-PCR) Not Detected Influenza Type B (PCR) M. pneumoniae (PCR) Not Detected Parainfluenza 1 (PCR) Not Detected Parainfluenza 2 (PCR) Not Detected Parainfluenza 3 (PCR) Detected A Parainfluenza 4 (PCR) Not Detected RSV (PCR) Not Detected RSV RNA Qual (PCR) Entero/Rhino (PCR) Not Detected SARS-CoV-2 RNA (RT-PCR) Not Detected Blood Type Antibody Screen Microbiology Microbiology Results: Microbiology 10/02/23 15:16 Blood Culture - Preliminary Blood - Venous Prelim: GPC Gram Stain only 10/02/23 15:05 Blood Culture - Preliminary Blood - Venous Prelim: GPC Gram Stain only Assessment and Plan (1) Pneumonia: Status: Acute Plan 37F no significant PMH presented with cough, fever severe sepsis due to acute pneumonia complicated by GPC bacteremia post viral (human metapneumovirus, paraflu) vs aspiration continue vanc and unasyn follow up cultures, repeat cultures, echo, ID, hiv acute hypomagnesemia replaced dvt prophylaxis - low risk, early ambulation full code reason for continued hospitalization: bactremia Quality Stroke Does the patient have a stroke diagnosis?: No VTE Prior VTE?: No VTE Risk Level:: Medical - moderate - high VTE Device Contraindication: Treatment Not Indicated VTE Drug Contraindication: N/A - Med Ordered
[2023-10-03 16:00] VITALS: BP 117/59; PULSE 109; RESP 20; TEMP 37.3; O2SAT 96
[2023-10-03 16:29] LABS: Vancomycin Trough 7.9 mcg/mL (10.0-20.0)
[2023-10-03] MEDS: vancomycin HCL 1,250 MG in 0.9 % Sodium Chloride 250 ML 166.67 MG IV (18:30)
[2023-10-03 20:00] VITALS: BP 113/70; PULSE 103; RESP 18; TEMP 36.7; O2SAT 100
[2023-10-03] MEDS: Melatonin 3 MG TABLET 6 MG PO (21:23)
[2023-10-04] VITALS (7 sets, daily range): BP systolic 104–151; BP diastolic 61–80; PULSE 77–88; RESP 17–20; TEMP 36.4–37.4; O2SAT 94–99
[2023-10-04] MEDS: guaiFEN/Codeine SF 200/20/10ML 10 ML LIQUID 5 ML PO ×5 (03:53→21:05)
[2023-10-04] MEDS: Ampicillin Sodium/Sulbactam Na 3 GM in 0.9 % Sodium Chloride 100 ML IV ×4 (03:53→21:05)
[2023-10-04] MEDS: Acetaminophen 325 MG TABLET 650 MG PO ×3 (03:59→21:04)
[2023-10-04] MEDS: vancomycin HCL 1,250 MG in 0.9 % Sodium Chloride 250 ML 166.67 MG IV (06:46)
[2023-10-04 07:36] LABS: Hematocrit 29.4 % (37.0-47.0); Mean Corpuscular Hemoglobin 31.1 pg (27.0-33.0); Mean Corpuscular Volume 91.3 fL (80.0-98.0); Mean Platelet Volume 9.3 fL (9.4-12.3); Platelet Count 268 X10*3/uL (160-400); Red Blood Count 3.22 X10*6/uL (4.20-5.50); Red Cell Distribution Width 12.6 % (11.0-16.0); White Blood Count 18.9 X10*3/uL (4.8-10.8)
[2023-10-04 07:50] LABS: Anion Gap 12 (12-20); Blood Urea Nitrogen 7 mg/dL (9-16); Carbon Dioxide 20 mmol/L (22-29); Chloride 112 mmol/L (96-108); Creatinine Clr Calc Pharmacy 107.9; Estimated Glomerular Filt Rate > 60; Glucose Fasting 94 mg/dL (60-99); Potassium 3.6 mmol/L (3.3-5.1); Sodium 140 mmol/L (135-145)
[2023-10-04 08:02] LABS: Calcium 8.8 mg/dL (8.4-10.2)
[2023-10-04] MEDS: 0.9 % Sodium Chloride Flush 3 ML SYRINGE IVFLUSH ×3 (09:15→21:11)
[2023-10-04 10:29] LABS: Iron 13 mcg/dL (30-160); Percent Iron Saturation 7 % (15-50); Total Iron Binding Capacity 185 mcg/dL (228-428); Unsaturated Iron Binding 172 ug/dL
--- NOTE | 2023-10-04 13:07 | MHC.CM.PN ---
Per ROUNDS discussion, Patient is not yet medically cleared for dc(pending cultures); home is the goal and CM will continue to follow.
[2023-10-04 16:46] LABS: Vancomycin Random 8.3 mcg/mL (15-20)
--- NOTE | 2023-10-04 17:04 | P.PNIM_ITS ---
Subjective Subjective Date of Service: 10/04/23 Interval History: Seen and evaluated this morning Feels better but still weak and fatigued pending final cultures Review of Systems Review of Systems: Yes all other systems are reviewed and are negative Physical Exam 2 Vital Signs: Vital Signs: Last Vital Signs Temp 99.4 F 10/04/23 15:13 Pulse 88 10/04/23 15:13 Resp 20 10/04/23 15:13 BP 124/72 10/04/23 15:13 Pulse Ox 97 10/04/23 15:13 O2 Del Method Room Air 10/04/23 15:13 O2 Flow Rate 3.5 10/02/23 15:28 BMI result Body Mass Index 38.8 Const: Other: Constitutional : Awake, interactive, not in distress Neck : Normal inspection, Supple Cardiovascular : RRR, no JVP, no lower extremity edema Respiratory : good bilateral air entry, no crackles, wheezes or rhonchi Gastrointestinal: soft, lax, Normal bowel sounds, Non tender Skin : Warm, Dry Neurological : Alert & oriented x3, No focal deficit Objective Data Active Medications Acetaminophen (Acetaminophen 325 Mg Tablet) 650 mg PO Q6H PRN PRN Reason: Fever Last Admin: 10/04/23 15:18 Dose: 650 mg Documented By: MELBA Acetaminophen (Acetaminophen 325 Mg Tablet) 650 mg PO Q6H PRN PRN Reason: Pain, Mild (Pain Scale 1-3) Last Admin: 10/04/23 03:59 Dose: 650 mg Documented By: ANGELA Acetaminophen (Acetaminophen 325 Mg Tablet) 650 mg PO Q6H PRN PRN Reason: Headache Last Admin: 10/03/23 05:00 Dose: 650 mg Documented By: MALA Calcium Carbonate (Calcium Carbonate 750 Mg Tab.Chew) 750 mg PO Q6H PRN PRN Reason: Heartburn Guaifenesin/Codeine Phosphate (Guaifen/Codeine Sf 200/20/10ml 10 Ml Liquid) 5 ml PO Q4H [facility] Last Admin: 10/04/23 15:57 Dose: 5 ml Documented By: MELBA Ampicillin Sodium/Sulbactam (Sodium 3 gm/ Sodium Chloride) 100 mls @ 200 mls/hr IV Q6H [facility] Last Admin: 10/04/23 15:15 Dose: 200 mls/hr Documented By: MELBA Vancomycin HCl 1,250 mg/ (Sodium Chloride) 250 mls @ 166.667 mls/hr IV Q12H [facility] Last Infusion: 10/04/23 08:30 Dose: Infused Documented By: MELBA Magnesium Hydroxide (Milk Of Magnesia 30 Ml Oral.Susp) 30 ml PO DAILY PRN PRN Reason: Constipation Melatonin (Melatonin 3 Mg Tablet) 6 mg PO BEDTIME PRN PRN Reason: Insomnia Last Admin: 10/03/23 21:23 Dose: 6 mg Documented By: ANGELA Pharmacy Consult (Consult Rx Vancomycin Dosing) 1 each MISCELLANE DAILY PRN PRN Reason: Consult order Polyethylene Glycol (Polyethylene Glycol 3350 17 Gm Powd.Pack) 17 gm PO DAILY PRN PRN Reason: Constipation Sodium Chloride (0.9 % Sodium Chloride Flush 3 Ml Syringe) 3 ml IVFLUSH QSHIFT [facility] Last Admin: 10/04/23 15:19 Dose: 3 ml Documented By: MELBA Labs 10/04/23 07:06 10/04/23 07:06 Labs: Laboratory Results - last 24 hr 10/04/23 10/04/23 07:06 16:16 MCV 91.3 MCH 31.1 MCHC 34.0 RDW 12.6 Plt Count 268 MPV 9.3 L Absolute Nucleated RBC 0.000 Nucleated RBC % (auto) 0.0 Anion Gap 12 Estim Creat Clear Calc 107.9 Estimated GFR > 60 Fasting Glucose 94 Calcium 8.8 D Iron 13 L TIBC 185 L % Saturation 7 L Unsat Iron Binding 172 Random Vancomycin 8.3 L Microbiology Microbiology Results: Microbiology 10/02/23 15:16 Blood Culture - Preliminary Blood - Venous Streptococcus pneumoniae 10/02/23 15:05 Blood Culture - Preliminary Blood - Venous Streptococcus pneumoniae 10/02/23 17:55 Urine Culture - Final Urine clean catch - Urine doherty top No growth. 10/03/23 17:25 Gram Stain - Final Sputum - Expectorated Sputum Culture - Preliminary No growth to date. Assessment and Plan (1) Hypomagnesemia: Status: Acute (2) Pneumonia: Status: Acute (3) Bacteremia due to Streptococcus pneumoniae: Status: Acute Plan 37F no significant PMH presented with cough, fever severe sepsis due to acute pneumonia complicated by GPC bacteremia post viral (human metapneumovirus, paraflu) vs aspiration Blood cx growing Strep Pneumonia DC vanc and continue unasyn follow up repeat cultures Negative echo, HIV ID following acute hypomagnesemia replaced dvt prophylaxis - low risk, early ambulation full code reason for continued hospitalization: bactremia Quality Stroke Does the patient have a stroke diagnosis?: No VTE Prior VTE?: No VTE Risk Level:: Medical - moderate - high VTE Device Contraindication: Treatment Not Indicated VTE Drug Contraindication: N/A - Med Ordered
[2023-10-04] MEDS: Ferrous Sulfate 324 MG TABLET.DR PO (18:41)
--- NOTE | 2023-10-05 00:07 | P.CNID_ITS ---
History of Present Illness Data of Consult Service Date: 10/04/23 Requesting physician: Lizzie Harrington Primary Care Provider: Jefferson LYN Reason for consult: strep pneumonia bacteremia She presents with chills and profound weakness for last 2-3 days. She has been visiting from [place] and in crowded setting in car. She has strep pneumonia bacteremia. Review of Systems 2 Review of Systems: Yes all other systems are reviewed and are negative PMFSH Past Medical History Medical History No known health problems Family History Family history: reviewed and not pertinent Social History Social History Household Members: Spouse, Family and Children Household Members Other:: , daughter, mother Housing: House Do you presently have visiting nurse or other home services: No Alcohol intake: current Patient Tobacco Use Status: Never used Tobacco service: No Meds Allergies Allergy/AdvReac Type Severity Reaction Status Date / Time No Known Allergies Allergy Verified 10/02/23 13:41 Active Medications: Current Medications Acetaminophen (Acetaminophen 325 Mg Tablet) 650 mg PO Q6H PRN PRN Reason: Fever Last Admin: 10/04/23 21:04 Dose: 650 mg Acetaminophen (Acetaminophen 325 Mg Tablet) 650 mg PO Q6H PRN PRN Reason: Pain, Mild (Pain Scale 1-3) Last Admin: 10/04/23 03:59 Dose: 650 mg Acetaminophen (Acetaminophen 325 Mg Tablet) 650 mg PO Q6H PRN PRN Reason: Headache Last Admin: 10/03/23 05:00 Dose: 650 mg Calcium Carbonate (Calcium Carbonate 750 Mg Tab.Chew) 750 mg PO Q6H PRN PRN Reason: Heartburn Ferrous Sulfate (Ferrous Sulfate 324 Mg Tablet.Dr) 324 mg PO BIDWM DANIEL Last Admin: 10/04/23 18:41 Dose: 324 mg Guaifenesin/Codeine Phosphate (Guaifen/Codeine Sf 200/20/10ml 10 Ml Liquid) 5 ml PO Q4H [facility] Last Admin: 10/04/23 21:05 Dose: 5 ml Ampicillin Sodium/Sulbactam (Sodium 3 gm/ Sodium Chloride) 100 mls @ 200 mls/hr IV Q6H [facility] Last Infusion: 05/15/24 21:45 Dose: Infused Magnesium Hydroxide (Milk Of Magnesia 30 Ml Oral.Susp) 30 ml PO DAILY PRN PRN Reason: Constipation Melatonin (Melatonin 3 Mg Tablet) 6 mg PO BEDTIME PRN PRN Reason: Insomnia Last Admin: 10/03/23 21:23 Dose: 6 mg Polyethylene Glycol (Polyethylene Glycol 3350 17 Gm Powd.Pack) 17 gm PO DAILY PRN PRN Reason: Constipation Sodium Chloride (0.9 % Sodium Chloride Flush 3 Ml Syringe) 3 ml IVFLUSH QSHIFT [facility] Last Admin: 10/04/23 21:11 Dose: 3 ml Physical Exam 2 Vital Signs: Vital Signs: Last Vital Signs Temp 98.6 F 10/04/23 23:07 Pulse 77 10/04/23 23:07 Resp 18 10/04/23 23:07 BP 119/80 10/04/23 23:07 Pulse Ox 97 10/04/23 23:07 O2 Del Method Room Air 10/04/23 23:07 O2 Flow Rate 3.5 10/02/23 15:28 BMI result Body Mass Index 38.8 Const: General: cooperative HEENT: Head: Yes normal to inspection Face and sinus: Yes normal facial exam Mouth: Normal oral and palatal mucosa present Teeth and gingiva: d entition normal Eyes: General: appearance normal, both eyes and all related structures P upils: Equal, round and reactive pupils present Resp: Effort & Inspection: normal respiratory effort Cardio: Rate: regular rate Rhythm: regular rhythm GI: Palpation (GI): Soft to palpation and nontender : General: Yes no CVA tenderness Back/Spine/Pelvis: Back: no CVA tenderness Skin: General skin exam: no rashes or lesions noted Neuro: General: moves all extremities Cranial nerves: Yes Equal, round and reactive pupils present Extrem: General: Yes normal to inspection Psych: Appearance: grossly normal Results Labs 10/04/23 07:06 10/04/23 07:06 Labs: Short CBC 10/04/23 Range/Units 07:06 WBC 18.9 H (4.8-10.8) X10*3/uL Hgb 10.0 L (12.0-16.0) g/dl Hct 29.4 L (37.0-47.0) % Plt Count 268 (160-400) X10*3/uL BMP 10/04/23 07:06 Sodium 140 Potassium 3.6 Chloride 112 H Carbon Dioxide 20 L BUN 7 L Creatinine 0.70 Calcium 8.8 D Microbiology Microbiology Results: Microbiology 10/02/23 15:16 Blood - Venous Blood Culture - Preliminary Streptococcus pneumoniae 10/02/23 15:05 Blood - Venous Blood Culture - Preliminary Streptococcus pneumoniae 10/02/23 17:55 Urine clean catch - Urine doherty top Urine Culture - Final No growth. 10/03/23 17:25 Sputum - Expectorated Gram Stain - Final 10/03/23 17:25 Sputum - Expectorated Sputum Culture - Preliminary No growth to date. Assessment and Plan (1) Pneumonia: Status: Acute (2) Bacteremia due to Streptococcus pneumoniae: Status: Acute Plan Strep pneumonia probably due to crowding likely No immune deficiency seen and not on oxygen. Would give po Levaquin 750 mg daily to complete 14 days therapy. follow PCP after illness to check IgA and IgG.
[2023-10-05] MEDS: Ampicillin Sodium/Sulbactam Na 3 GM in 0.9 % Sodium Chloride 100 ML IV ×2 (02:33→08:37)
[2023-10-05] MEDS: guaiFEN/Codeine SF 200/20/10ML 10 ML LIQUID 5 ML PO ×3 (02:33→08:37)
[2023-10-05 04:00] VITALS: BP 136/77; PULSE 84; RESP 20; TEMP 37.1; O2SAT 95
[2023-10-05] MEDS: Acetaminophen 325 MG TABLET 650 MG PO (05:21)
[2023-10-05 07:11] LABS: Hemoglobin 9.9 g/dl (12.0-16.0); Mean Corpuscular HGB Conc 34.1 g/dl (31.0-35.0); Mean Corpuscular Hemoglobin 31.1 pg (27.0-33.0); Mean Corpuscular Volume 91.2 fL (80.0-98.0); Mean Platelet Volume 9.3 fL (9.4-12.3); Platelet Count 288 X10*3/uL (160-400); Red Blood Count 3.18 X10*6/uL (4.20-5.50); Red Cell Distribution Width 12.2 % (11.0-16.0); White Blood Count 13.2 X10*3/uL (4.8-10.8)
[2023-10-05 07:27] LABS: Creatinine Clr Calc Pharmacy 114.4; Estimated Glomerular Filt Rate > 60
[2023-10-05 08:00] VITALS: BP 139/74; PULSE 89; RESP 20; TEMP 36.9; O2SAT 95
[2023-10-05] MEDS: Ferrous Sulfate 324 MG TABLET.DR PO (08:37)
[2023-10-05] MEDS: 0.9 % Sodium Chloride Flush 3 ML SYRINGE IVFLUSH (08:40)
[2023-10-05] MEDS: Butalb/Acetamin/Caff 50/325/40 TABLET 2 TAB PO (09:12)
--- NOTE | 2023-10-05 12:09 | PM.DS ---
DS: Providers Provider Date of Service: 10/05/23 Date of admission: 10/02/23 16:56 Primary care physician: Jefferson Lopez Consults: 10/03/23 09:28 Consult to Infectious Diseases Routine Consulting Provider: [facility] [place] Infectious Disease Reason for consultation: bacteremia DS: Diagnosis Discharge Diagnosis (1) Pneumonia: Status: Acute (2) Bacteremia due to Streptococcus pneumoniae: Status: Acute (3) Hypomagnesemia: Status: Acute (4) Severe sepsis: Status: Acute (5) Hypoxia: Status: Acute DS: Summary Hospital Course Hospital Course: Admission note HPI 37-year-old female without any significant past medical history presented to the ED earlier today for evaluation of shortness of breath, worsening productive cough and fevers noted around 03:00 this morning. She states for about 1 week, she has been sick with upper respiratory symptoms including cough, congestion, sinus pain, headache. States her and daughter were sick with similar symptoms. However this morning, acutely worsened with fevers of 101.3, worsening productive cough and shortness of breath. She also has significant pleuritic chest pain. Was also reporting epigastric pain but no nausea or vomiting. She states she lives in [place] and drove 11.5 hours to a wedding in [place] and is now in the city visiting relatives. Denies any known history of blood clots. She reports occasional alcohol consumption. No cigarette smoking or drug use including marijuana. On arrival, patient was hypotensive to 71/40 and tachycardic to 127. She has not had fevers in the ED but reports feeling sweats and chills. She was also noted to be hypoxic to 87% on room air and briefly placed on 3 L supplemental O2. On admission, oximetry noted to be between 94-96% on room air and was removed from supplemental O2. She has a leukocytosis of 19.1 with 39% bandemia. Renal function normal, electrolyte levels normal except for magnesium of 1.2. Lactic acid 1.8. Total bilirubin 1.2. Troponin undetectable. Negative for COVID-19, RSV, flu. Chest CT shows extensive airspace disease and masslike consolidation in the medial right lower lobe with patchy airspace disease in left lower lobe and trace right pleural effusion likely representing pneumonia. CT abd/pelvis negative for acute intraabdominal abnormality. In the ED, has received 3.5 L IV NS, 2 g magnesium, 3.375 g Zosyn. Hospital course She was admitted to the hospital for treatment of severe sepsis due to acute pneumonia complicated by streptococcal pneumonae bacteremia as a result of likely post viral (human metapneumovirus, paraflu) infections. Blood cx growing Strep Pneumonia but repeated one remains negative. Treated with IV vancomycin and continue unasyn with good response as weakness and SOB resolved. WBCs trended down. Tested negative echo for vegetations, and negative HIV. Seen by ID who recommended finishing 2 weeks of oral antibiotics like Levaquin. Found to have acute hypomagnesemia which was replaced and corrected. Discharge plan Continue Levaquin for 10 more days to finish total of 2 weeks of antibitics Follow with PCP within 2 weeks for reevaluation Time Attestation Discharge Coordination Time (in mins): 37 Quality: Safe Use of Opioids Does Pt have an Active Cancer Diagnosis on the Problem List?: No Quality: Stroke Does the patient have a stroke diagnosis?: No Physical Exam Vital Signs: Vital Signs: Last Vital Signs Temp 98.4 F 10/05/23 08:00 Pulse 89 10/05/23 08:00 Resp 20 10/05/23 08:00 BP 139/74 10/05/23 08:00 Pulse Ox 95 10/05/23 08:00 O2 Del Method Room Air 10/05/23 08:00 O2 Flow Rate 3.5 10/02/23 15:28 BMI result Body Mass Index 38.8 Const: Other: Constitutional : Awake, interactive, not in distress Neck : Normal inspection, Supple Cardiovascular : RRR, no JVP, no lower extremity edema Respiratory : good bilateral air entry, no crackles, wheezes or rhonchi Gastrointestinal: soft, lax, Normal bowel sounds, Non tender Skin : Warm, Dry Neurological : Alert & oriented x3, No focal deficit DS: Data Data Completed and Pending Labs on day of discharge: Laboratory Results - last 24 hr 10/04/23 10/05/23 16:16 06:33 WBC 13.2 H RBC 3.18 L Hgb 9.9 L Hct 29.0 L MCV 91.2 MCH 31.1 MCHC 34.1 RDW 12.2 Plt Count 288 MPV 9.3 L Absolute Nucleated RBC 0.000 Nucleated RBC % (auto) 0.0 Creatinine 0.66 Estim Creat Clear Calc 114.4 Estimated GFR > 60 Random Vancomycin 8.3 L Preliminary micro results at discharge 10/03/23 17:25 Sputum Culture - Preliminary Sputum - Expectorated 10/04/23 07:06 Blood Culture - Preliminary Blood - Venous No growth after 24 hours. 10/04/23 07:06 Blood Culture - Preliminary Blood - Venous No growth after 24 hours. Imaging Chest x-ray: Radiologist's impression: ITS Impressions Abdomen/Pelvis CT 10/02/23 14:32 IMPRESSION: Extensive airspace disease and masslike consolidation in the medial right lower lobe with patchy airspace disease in the left lower lobe. Trace right pleural effusion. This likely represents pneumonia. Follow-up until resolution is advised. Chest CT 10/02/23 14:32 IMPRESSION: Extensive airspace disease and masslike consolidation in the medial right lower lobe with patchy airspace disease in the left lower lobe. Trace right pleural effusion. This likely represents pneumonia. Follow-up until resolution is advised. Chest X-Ray 10/02/23 14:45 IMPRESSION: Right lower lobe airspace disease concerning for pneumonia. Left lower lobe disease cannot be completely excluded. Discharge Plan Discharge Anticipated Discharge Date/Time: 10/05/23 12:06 Patient Disposition: Home, Self-Care Discharge Diagnosis: Streptococcal Pneumonia bacteremia Referrals: Jefferson Lopez [Other] - 1 Week Discharge Medications: New levofloxacin 750 mg tablet 750 mg PO DAILY Qty: 10 0RF Discharge Orders: Discharge Order (Routine); Ordered 10/05/23 Ordered By: Lizzie Harrington Diet: Advance to usual diet Activity on Discharge: As tolerated Stand Alone Forms: Patient Portal Discharge page Print Language: [place] Care Plan Goals: Read below Health Concerns: Read below Plan of Treatment: Read below Assessment: You were treated for pneumonia complicated by streptococcus bacteremia as a result of post viral infection. Responded well to IV antibiotics as you were evaluated by infectious disease specialist. Continue Levaquin for 10 more days to finish total of 2 weeks of antibitics Follow with PCP within 2 weeks for reevaluation
[2023-10-05] MEDS: levoFLOXacin 750 MG TABLET PO (12:19)
--- NOTE | 2023-10-05 12:24 | MHC.CM.PN ---
Patient has been medically cleared for dc to home today, self care.
[2023-10-05 18:43] LABS: Strep Pneumo Ag urine Detected (Not Detected)
[2023-10-06 04:48] LABS: Legionella Ag Urine Not Detected (Not Detected)
== END 2023-10-05 12:52 | disposition home or self-care (01) | DRG 720 ==
LOC: HO.ED 15:57 → HO.EDOVER 17:27 → HO.IMC 18:16
PROVIDERS: Internal Medicine; Physician Assistant; Admitting Provider Physician Assistant; Emergency Provider Student in an Organized Health Care Education/Training Program; PCP Registered Nurse; Visit Provider Student in an Organized Health Care Education/Training Program
DX: A41.9 Sepsis, unspecified organism (principal); B97.81 Human metapneumovirus as the cause of diseases classified elsewhere; B95.3 Streptococcus pneumoniae as the cause of diseases classified elsewhere; E83.42 Hypomagnesemia; R65.20 Severe sepsis without septic shock; Z20.822 Contact with and (suspected) exposure to COVID-19
CPT/HCPCS: 0241U; 36415; 71046; 71260; 74177; 80048; 80076; 80202; 81001; 81025; 82565; 83540; 83605; 83690; 83735; 84484; 85007; 85027; 85379; 86850; 86900; 86901; 87040; 87070; 87077; 87086; 87205; 87389; 87449; 87633; 87640; 87641; 87899; 93005; 93306; 99285; J0295; J2543; J3370; J3371; J3475; Q9957; Q9967

== ENCOUNTER → 2023-10-02 13:41 | Outpatient (BNV) | payer BC, SELFPAY | PROVIDERS: Admitting Provider Physician Assistant; Emergency Provider Student in an Organized Health Care Education/Training Program; Visit Provider Internal Medicine Cardiovascular Disease | DX: R06.02 Shortness of breath (principal) | CPT/HCPCS: 93010 ==

== ENCOUNTER 2023-10-02 16:56 | Outpatient (BNV) | payer BC, SELFPAY | END 2023-10-03 07:00 | PROVIDERS: Admitting Provider Physician Assistant; Emergency Provider Student in an Organized Health Care Education/Training Program; Visit Provider Internal Medicine Cardiovascular Disease | DX: I34.0 Nonrheumatic mitral (valve) insufficiency (principal); I36.1 Nonrheumatic tricuspid (valve) insufficiency | CPT/HCPCS: 93306 ==

== ENCOUNTER → 2023-10-02 16:56 | Outpatient (BNV) | payer BC, SELFPAY | PROVIDERS: Admitting Provider Physician Assistant; Emergency Provider Student in an Organized Health Care Education/Training Program; Visit Provider Physician Assistant | DX: J18.9 Pneumonia, unspecified organism (principal); R78.81 Bacteremia; B95.3 Streptococcus pneumoniae as the cause of diseases classified elsewhere; E83.42 Hypomagnesemia; A41.9 Sepsis, unspecified organism; R65.20 Severe sepsis without septic shock; R09.02 Hypoxemia | CPT/HCPCS: 99223; 99232; 99239; 99499 ==

== ENCOUNTER → 2023-10-02 16:56 | Outpatient (BNV) | payer BC, SELFPAY | PROVIDERS: Admitting Provider Physician Assistant; Emergency Provider Student in an Organized Health Care Education/Training Program; Visit Provider Internal Medicine | DX: J18.9 Pneumonia, unspecified organism (principal); R78.81 Bacteremia; B95.3 Streptococcus pneumoniae as the cause of diseases classified elsewhere | CPT/HCPCS: 99222 ==